=== PATIENT | male | born 1960 | race Caucasian/White ===

== ENCOUNTER 2019-07-19 05:56 | Emergency (ER) | payer MEDICAID, OTHER ==
[~2019-07-19] VITALS: Ht 177.8 cm; Wt 83.1 kg
[2019-07-19] MEDS ORDERED: NALT50TA PO (06:05)
--- NOTE | 2019-07-19 06:16 | NUR ---
PT TO ED STATES "IM HAVING AN ANXIETY ATTACK", PT HAS RESPIRATORY RATE OF 30, IS DIAPHORETIC AND TEARFUL. STATES "I CAN'T DO THIS, I CANT BE LOCKED IN, THEY'RE CALLING PEOPLE FOR WORK AND THEY HAVEN'T CALLED ME" PT DENIES SI/HI. PT ABLE TO TAKE LONG SLOW BREATHS TO CALM HIMSELF THEN RESUMES RAPID RESPIRATIONS AND STATING "I CAN'T DO THIS". PT CONNECTED TO MONITORING, CALL LIGHT WITHIN REACH, ROOM DIMMED FOR PT COMFORT. ERP IN ROOM TO EVAL PT.
[2019-07-19] MEDS ORDERED: LORazepam 1MG TABLET ONE (06:24)
[2019-07-19] MEDS ORDERED: LORazepam 1MG TABLET PO ONE (06:30)
[2019-07-19 06:45] VITALS: BP 154/98
--- NOTE | 2019-07-19 06:50 | NUR ---
RECEIVED REPORT FROM [facility].
--- NOTE | 2019-07-19 06:51 | NUR ---
REPORT TO [facility]. PT PLACED ON 2L NC.
== END 2019-07-19 07:59 | disposition home or self-care (01) ==
LOC: ED 06:36
DX: F41.1 Generalized anxiety disorder (principal)
CPT/HCPCS: 99283